=== PATIENT | male | born 1945 | race Hispanic/Latino ===

== ENCOUNTER 2018-11-17 07:58 | Day surgery (SDC) | payer OTHER ==
[2018-11-14 14:57] VITALS: BP 153/74
[2018-11-14 15:06] LABS: BASOPHILS % (AUTO) 0.8 % (0.0-5.0); EOSINOPHILS % (AUTO) 2.7 % (0.0-8.0); HEMATOCRIT 37.5 % (42-54); LYMPHOCYTES % (AUTO) 23.9 % (21.0-51.0); MEAN CORPUSCULAR HEMOGLOBIN 31.8 pg (27.0-33.0); MEAN CORPUSCULAR HGB CONC 33.8 g/dL (32.0-36.0); MEAN CORPUSCULAR VOLUME 94.2 fL (79-99); MONOCYTES % (AUTO) 9.4 % (3.0-13.0); NEUTROPHILS % (AUTO) 63.2 % (40.0-77.0); PLATELET COUNT (AUTO) 196 K/uL (130-400); RED BLOOD CELL COUNT(AUTO) 3.98 MIL/uL (4.50-6.20); RED CELL DISTRIBUTION WIDTH 13.4 % (11.0-15.5); WHITE BLOOD COUNT (AUTO) 7.1 K/uL (4.8-10.8)
[2018-11-14 15:08] LABS: APPEARANCE,URINE Clear (CLEAR); BILIRUBIN,URINE Negative (NEGATIVE); COLOR,URINE Yellow (YELLOW); GLUCOSE, URINE (UA) Negative (NEGATIVE); KETONES,URINE Negative (NEGATIVE); LEUKOCYTE ESTERASE ,URINE Negative (NEGATIVE); NITRATE,URINE Negative (NEGATIVE); OCCULT BLOOD,URINE Negative (NEGATIVE); PROTEIN,URINE Negative (NEGATIVE); UROBILINOGEN,URINE 0.2 mg/dL (0.2-1.0)
[2018-11-14 15:14] LABS: INR 0.99 (0.85-1.15); PARTIAL THROMBOPLASTIN TIME 28.2 SEC (26.3-35.5); PROTHROMBIN TIME 10.4 SEC (9.6-11.6)
[2018-11-14 15:18] LABS: CREATININE 1.3 mg/dL (0.5-1.5); POTASSIUM 4.9 mmol/L (3.5-5.1)
[~2018-11-17] VITALS: Ht 167.6 cm; Wt 62.1 kg
[2018-11-17] VITALS (14 sets, daily range): BP systolic 141–156; BP diastolic 56–77
[~2018-11-17 07:58] MED LIST: AEC81 PO; GLIM4TAB3 PO; LOSA50TA64 PO; LOVA10TA2 PO; METF-446 PO; TAMS-1 PO
[2018-11-17] MEDS ORDERED: CEFTRIAXONE SODIUM 1 GM IVP ONE (08:00)
[2018-11-17] MEDS ORDERED: CEFTRIAXONE SODIUM 1 GM ONE (09:26)
[2018-11-17] MEDS ORDERED: SODIUM CHLORIDE 0.9% 1000ML 1,000 ML IV ONE (09:27)
[2018-11-17] MEDS: GENTAMICIN SULFATE 300 MG in SODIUM CHLORIDE 0.9% 100 ML IV PRN ×2 (09:38→09:43)
[2018-11-17] MEDS ORDERED: LIDOCAINE PF 2% 5ML ABBOJECT ONE (10:20)
[2018-11-17] MEDS ORDERED: MIDAZOLAM HCL 1 MG/ML 2ML VIAL ONE (10:20)
[2018-11-17] MEDS ORDERED: FENTANYL CITRATE PF 50 MCG/1 ML 2ML VIAL ONE (10:21)
[2018-11-17] MEDS ORDERED: PROPOFOL 10 MG/ML 20ML VIAL IV ONE (10:21)
[2018-11-17] MEDS ORDERED: ONDANSETRON HCL 4 MG/2 ML VIAL ONE (10:21)
[2018-11-17] MEDS ORDERED: EPHEDRINE SULFATE 50 MG/ML AMPULE ONE (10:38)
[2018-11-17] MEDS ORDERED: MEPERIDINE-PF 25 MG/ML SYG ONE (12:06)
--- NOTE | 2018-11-17 13:14 | NUR ---
BOTH PATIENT AND HIS RECEIVED EDUCATION ON RAIN CATHETER CARE, THEY BOTH VERBALIZED UNDERSTANDING.
--- NOTE | 2018-11-17 13:25 | NUR ---
PATIENT ASSISTED TO CHANGE INTO HIS CLOTHING WITHOUT DIFFICULTY. PATIENT IN NO DSITRESS.
== END 2018-11-17 13:32 | disposition home or self-care (01) ==
LOC: DAH 07:58
PROVIDERS: ATTEND Urology
DX: N40.1 Benign prostatic hyperplasia with lower urinary tract symptoms (principal); N39.0 Urinary tract infection, site not specified; Z79.899 Other long term (current) drug therapy; Z98.890 Other specified postprocedural states; Z88.8 Allergy status to other drugs, medicaments and biological substances; Z83.3 Family history of diabetes mellitus; E11.9 Type 2 diabetes mellitus without complications; I10 Essential (primary) hypertension; E78.5 Hyperlipidemia, unspecified; H40.9 Unspecified glaucoma; Z79.01 Long term (current) use of anticoagulants
CPT/HCPCS: 36415; 52648; 71045; 80048; 81003; 82948 ×2; 85025; 85610; 85730; 87088; 93005; 96365; A4218; A4354; A4358; A4600; J0696; J1580; J2001; J2175; J2250; J2405; J2704; J3010; J3490; J7030 ×2